=== PATIENT | male | born 1945 | race Caucasian/White ===

== ENCOUNTER 2017-05-14 17:43 | Emergency (ER) | payer MEDICARE ==
[~2017-05-14] VITALS: Ht 170.2 cm; Wt 96.6 kg
[~2017-05-14 17:43] MED LIST: AMBI10TA PO; ERYT250 PO; NIAC500 PO; PERC10TA26 PO; ZOCO40TA PO
[2017-05-14 17:49] VITALS: BP 176/82; PULSE 71; RESP 18; TEMP 98.1; O2SAT 96
[2017-05-14] MEDS ORDERED: AMBI10TA PO (19:20)
[2017-05-14] MEDS ORDERED: ZOCO40TA PO (19:20)
--- NOTE | 2017-05-14 19:29 | RADRPT ---
EXAM DATE/TIME: 05/14/2017 18:57 [place] COMPARISON: No previous studies available for comparison. INDICATIONS : Left ankle pain on medial side. Patient states he fell through a dock. MEDICAL HISTORY : None. SURGICAL HISTORY : None. ENCOUNTER: Initial ACUITY: 4 - 6 days PAIN SCORE: 10/10 LOCATION: Left medial ankle. FINDINGS: 12 millimeter nonacute fracture with nonunion seen in the medial malleolus. There is some medial soft tissue swelling but I don't see an acute fracture. No subluxations. No radiopaque foreign body. Moderate to large heel spur noted. CONCLUSION: 12 mm fracture fragment of the tip of the medial malleolus, appears nonacute but conceivably may have been acutely exacerbated. No acute fracture demonstrated. No subluxation. Mckinley Atkins MD on May 14, 2017 at 19:26 Board Certified Radiologist. This report was verified electronically.
[2017-05-14] MEDS ORDERED: CLIN1CAP6 PO (19:45)
--- NOTE | 2017-05-14 19:45 | PD ---
HPI Chief Complaint: Pain: Acute or Chronic Time Seen by Provider: 18:30 Travel History International Travel<30 days: No Contact w/Intl Traveler<30days: No Traveled to known affect area: No History of Present Illness HPI 71-year-old male with chief complaint of left ankle pain. Patient reports 4 days ago he tripped while on his dock causing abrasions to bilateral anterior shins and left medial ankle. He has had increasing pain and swelling to the left medial ankle since that time. The area had become notably more swollen and red over the last 4 days. He denies fever or chills. The pain is constant , nonradiating, no aggravating or alleviating factors. Pain scale 4/10. PFSH Past Medical History Cancer: No High Cholesterol: Yes Diabetes: No Diminished Hearing: No Glaucoma: No Hepatitis: No Hiatal Hernia: No Hypertension: No Medical other: Yes (L5 BULDGING DISC) Immunizations Current: Yes Thyroid Disease: Yes (? GROWTH FOLLOWING WITH MD) Past Surgical History Oral Surgery: Yes (TONSILS) Pacemaker: No Tonsillectomy: Yes Other Surgery: Yes (NASAL POLYPS REMOVED) Social History Alcohol Use: Yes (RARELY) Tobacco Use: No Allergies-Medications (Allergen,Severity, Reaction): Coded Allergies: ampicillin (Unverified Allergy, Severe, rash, 05/14/17) Reported Meds & Prescriptions Reported Meds & Active Scripts Active Clindamycin (Clindamycin HCl) 300 Mg Cap 300 Mg PO Q6H Reported Zocor (Simvastatin) 40 Mg Tab 40 Mg PO DAILY Ambien (Zolpidem Tartrate) 10 Mg Tab 10 Mg PO HS PRN Review of Systems Except as stated in HPI: all other systems reviewed are Neg General / Constitutional: No: Fever Physical Exam Narrative GENERAL: Well-nourished, well-developed patient. SKIN: Focused skin assessment warm/dry. HEAD: Normocephalic. EYES: No scleral icterus. No injection or drainage. NECK: Supple, trachea midline. No JVD or lymphadenopathy. CARDIOVASCULAR: Regular rate and rhythm without murmurs, gallops, or rubs. RESPIRATORY: Breath sounds equal bilaterally. No accessory muscle use. GASTROINTESTINAL: Abdomen soft, non-tender, nondistended. MUSCULOSKELETAL: No cyanosis, or edema. Abrasions to bilateral anterior shins. Left ankle: Notable swelling and erythema to the medial aspect with a small superficial central abrasion. No induration or fluctuance. No lymphangitis. The joint is stable. 2+ distal pulses. Brisk cap refill BACK: Nontender without obvious deformity. No CVA tenderness. Data Data Last Documented VS Vital Signs Date Time Temp Pulse Resp B/P Pulse Ox O2 Delivery O2 Flow Rate FiO2 05/14/17 17:49 98.1 71 18 176/82 96 Room Air Orders Ankle, Complete ([id number]) (05/14/17 ) Benny Bandage (05/14/17 19:45) Splint Or Brace Apply/Monitor (05/14/17 19:45) Brace Ankle Stirrup (05/14/17 ) MDM Medical Decision Making Medical Screen Exam Complete: Yes Emergency Medical Condition: Yes Differential Diagnosis Cellulitis, ankle sprain, ankle fracture Narrative Course 71-year-old male with chief complaint of left ankle pain. Patient reports 4 days ago he tripped while on his dock causing abrasions to bilateral anterior shins and left medial ankle. He has had increasing pain and swelling to the left medial ankle since that time. The area had become notably more swollen and red over the last 4 days. He denies fever or chills. On exam the patient has approximately a 7 x 7 cm area of erythema with a central superficial abrasion to the medial aspect of the ankle. The area is warm and consistent with cellulitis. X-ray reveal a nonacute medial malleolus chip fracture. I do not suspect this fracture is new there is no ecchymosis or swelling consistent with an acute fracture. I believe the pain and erythema is consistent with a cellulitis caused by the abrasion to the ankle. The patient agrees that he believes this is an old fracture. Patient will be put on antibiotics, Benny wrap , ankle stirrup and instructed to follow-up with his PCP and orthopedic doctor. It was discussed with patient and family about the option of putting the patient in a splint to rule out an acute medial malleolus fracture. Patient decided he wanted the ankle stirrup because he does not feel that this is a fracture and I have to agree. Diagnosis Primary Impression: Cellulitis Qualified Code: L03.116 - Cellulitis of left lower extremity Referrals: Berny Winston MD Primary Care Physician Additional Instructions: Take the antibiotics as prescribed. Take [id number] Motrin [id number] milligrams every 6-8 hours as needed for pain. Wear the Benny wrap and ankle stirrup for the next few days as directed. Follow-up with her primary doctor. Return to emergency department if he developed new or worsening symptoms. Scripts Clindamycin 300 Mg [id number] Mg PO Q6H #40 CAP Prov:Anny Venegas 05/14/17 Disposition: 01 DISCHARGE HOME Condition: Stable Anny Venegas May 14, 2017 19:45
== END 2017-05-14 20:01 | disposition home or self-care (01) ==
LOC: PHED 17:43 → PHEFT 20:01
DX: L03.116 Cellulitis of left lower limb (principal); M25.572 Pain in left ankle and joints of left foot; W01.0XXA Fall on same level from slipping, tripping and stumbling without subsequent striking against object, initial encounter; Y93.9 Activity, unspecified; Y92.008 Other place in unspecified non-institutional (private) residence as the place of occurrence of the external cause
CPT/HCPCS: 73610; 99283; L1906